=== PATIENT | male | born 1965 | race Caucasian/White ===

== ENCOUNTER 2016-04-18 07:05 | Emergency (ER) | payer BC ==
[2016-04-18 07:15] VITALS: BP 124/78
--- NOTE | 2016-04-18 07:25 | UC ---
Throat Pain/Nasal Lb HPI - HPI Summary HPI Summary: sinus pain and pressure x 2 weeks + nasal congestion, pnd, cough no fever, no chills - History of Current Complaint Chief Complaint: UCRespiratory Stated Complaint: SINUS COMPLAINT Time Seen by Provider: 04/18/16 07:20 Hx Obtained From: Patient Onset/Duration: Gradual Onset, Lasting Weeks - 2, Still Present Severity: Moderate Cough: Nonproductive Associated Signs & Symptoms: Positive: Sinus Discomfort, Nasal Discharge. Negative: Dysphagia, Fever, Vomiting, Rash - Allergies/Home Medications Allergies/Adverse Reactions: Allergies Allergy/AdvReac Type Severity Reaction Status Date / Time No Known Allergies Allergy Verified 04/18/16 07:11 Home Medications: Home Medications Ibuprofen TAB* [Advil TAB*] 800 mg PO Q6H PRN 04/18/16 [History Confirmed ] PMH/Surg Hx/FS Hx/Imm Hx Previously Healthy: Yes - Surgical History Surgical History: None - Family History Known Family History: Negative: Diabetes - Social History Alcohol Use: None Substance Use Type: None Smoking Status (MU): Former Smoker When Did the Patient Quit Smoking/Using Tobacco: 2 months ago Review of Systems Constitutional: Fatigue Skin: Negative Eyes: Negative ENT: Nasal Discharge Respiratory: Cough Cardiovascular: Negative All Other Systems Reviewed And Are Negative: Yes Physical Exam Triage Information Reviewed: Yes Appearance: Well-Appearing, No Pain Distress, Well-Nourished Vital Signs: Initial Vital Signs Temp 98.1 F 04/18/16 07:12 Pulse 65 04/18/16 07:12 Resp 16 04/18/16 07:12 BP 124/78 04/18/16 07:12 Pulse Ox 100 04/18/16 07:12 Vital Signs Reviewed: Yes Eye Exam: Normal Eyes: Positive: Conjunctiva Clear ENT: Positive: Normal ENT inspection, Hearing grossly normal, Pharynx normal, Nasal congestion, Nasal drainage, TMs normal Neck exam: Normal Neck: Positive: Supple, Nontender, No Lymphadenopathy Respiratory: Positive: Chest non-tender, Lungs clear, Normal breath sounds Cardiovascular: Positive: RRR, No Murmur, Pulses Normal Skin Exam: Normal Throat Pain/Nasal Course/Dx - Differential Dx/Diagnosis Provider Diagnoses: SINUSITIS Discharge - Discharge Plan Condition: Stable Disposition: HOME Prescriptions: Amoxicillin/Clavulanate TAB* [Augmentin TAB 875*] 875 mg PO BID #20 tab Patient Education Materials: Sinusitis (ED) Referrals: DEZ Ballard [Primary Care Provider] - If Needed
== END 2016-04-18 07:33 | disposition home or self-care (01) ==
LOC: UCCORT 07:05
DX: J32.9 Chronic sinusitis, unspecified (principal); Z87.891 Personal history of nicotine dependence
CPT/HCPCS: 99202; G0463

== ENCOUNTER 2018-10-31 09:08 | Emergency (ER) | payer BC ==
[2018-10-31 09:48] VITALS: BP 143/79
--- NOTE | 2018-10-31 10:16 | UC ---
Ear Complaint HPI - HPI Summary HPI Summary: Patient is a 53-year-old male that presents here stating that he has decreased hearing in his left ear. States that he has been trying some [id number] methods of earwax removal without success. Denies any ear pain. No URI symptoms. He denies any cough chest pain or shortness of breath. - History of Current Complaint Chief Complaint: UCEar Stated Complaint: LEFT EAR PLUGGED Time Seen by Provider: 10/31/18 09:58 Hx Obtained From: Patient Onset/Duration: Gradual Onset, Lasting Days Severity Initially: Mild Severity Currently: Moderate Pain Intensity: 0 Pain Scale Used: 0-10 Numeric Aggravating Factors: Nothing Alleviating Factors: Nothing Associated Signs/Symptoms: Positive: Hearing Loss - Allergies/Home Medications Allergies/Adverse Reactions: Allergies Allergy/AdvReac Type Severity Reaction Status Date / Time environmental Allergy Runny Nose Uncoded 10/31/18 09:49 Home Medications: Home Medications LoraTADine TAB(NF) [Claritin 10 MG TAB(NF)] 10 mg PO DAILY 10/31/18 [History Confirmed 10/31/18] PMH/Surg Hx/FS Hx/Imm Hx Previously Healthy: Yes - Surgical History Surgical History: None - Family History Known Family History: Positive: Cardiac Disease, Hypertension Negative: Diabetes - Social History Alcohol Use: None Substance Use Type: None Smoking Status (MU): Former Smoker When Did the Patient Quit Smoking/Using Tobacco: 2 months ago Review of Systems All Other Systems Reviewed And Are Negative: Yes Constitutional: Positive: Negative Skin: Positive: Negative Eyes: Positive: Negative ENT: Positive: Other - hearing left ear Respiratory: Positive: Negative Cardiovascular: Positive: Negative Gastrointestinal: Positive: Negative Genitourinary: Positive: Negative Motor: Positive: Negative Neurovascular: Positive: Negative Musculoskeletal: Positive: Negative Neurological: Positive: Negative Psychological: Positive: Negative Physical Exam Triage Information Reviewed: Yes Appearance: Well-Appearing, No Pain Distress, Well-Nourished Vital Signs: Initial Vital Signs Temp 98.7 F 10/31/18 09:44 Pulse 71 10/31/18 09:44 Resp 16 10/31/18 09:44 BP 143/79 10/31/18 09:44 Pulse Ox 100 10/31/18 09:44 Vital Signs Reviewed: Yes Eyes: Positive: Conjunctiva Clear ENT: Positive: Pharynx normal, Uvula midline. Negative: Hearing grossly normal , Nasal congestion, Nasal drainage, TMs normal - unable to vis bilat, Tonsillar swelling, Trismus, Muffled voice, Hoarse voice Dental: Positive: Other: - upper dentures Neck: Positive: Supple, Nontender, No Lymphadenopathy Respiratory: Positive: Lungs clear, Normal breath sounds, No respiratory distress Cardiovascular: Positive: RRR, No Murmur Abdominal Exam: Normal Bowel Sounds: Positive: Present Musculoskeletal: Positive: ROM Intact, No Edema Neurological: Positive: Alert Psychological Exam: Normal Skin Exam: Normal Re-Evaluation - Re-Evaluation First Eval Re-Evaluation Time: 10:18 Change: Improved - TMs OK bilat Ear Complaint Course/Dx - Differential Dx/Diagnosis Provider Diagnosis: Bilateral impacted cerumen, Elevated BP without diagnosis of hypertension Discharge ED - Sign-Out/Discharge Documenting (check all that apply): Patient Departure All imaging exams completed and their final reports reviewed: No Studies - Discharge Plan Condition: Stable Disposition: HOME Patient Education Materials: Cerumen Impaction (ED) Referrals: No Primary Care Phys,NOPCP [Primary Care Provider] - 2 Weeks (BP recheck in 2- 12 weeks) Additional Instructions: call for any questions return for any problems Your BP is a little higher than we like to see should be followed up - Billing Disposition and Condition Condition: STABLE Disposition: Home
== END 2018-10-31 10:24 | disposition home or self-care (01) ==
LOC: UCCORT 09:08
DX: H61.23 Impacted cerumen, bilateral (principal); R03.0 Elevated blood-pressure reading, without diagnosis of hypertension; Z87.891 Personal history of nicotine dependence
CPT/HCPCS: 99213; G0463